=== PATIENT | female | born 1965 | race Caucasian/White ===

== ENCOUNTER 2020-06-27 12:07 | Observation (INO) | payer OTHER ==
[~2020-06-27] VITALS: Ht 165.1 cm; Wt 115.4 kg
--- NOTE | 2020-06-27 12:56 | NUR ---
SEE TRIAGE. PT PLACED ON ALL ROOM MONITORING. PT STATES STERNAL CP "HEAVINESS" FOR TWO DAYS, FAIRLY CONSTANT, WITH RADIATION TO BACK AND ACCOMPANYING SOB. ALSO TINGLING TO FINGERTIPS AND LIPS. PT DENIES N/V OR OTHER SX. PT REPORTS OF CAR TRIP TO [place] RECENTLY BUT NO OTHER TRAVEL. MEDIC STUDENT IN TO START IV, DRAW LABS. AT BS. CALL LIGHT WITHIN REACH.
[2020-06-27] MEDS ORDERED: ASPIRIN 81 MG TABLET CHEW ONE (13:30)
[2020-06-27] MEDS ORDERED: ASPIRIN 81 MG TABLET CHEW PO ONE (13:30)
[2020-06-27 13:32] LABS: BASOPHILS # (AUTO) 0.03 x10^3/uL (0-0.1); BASOPHILS % (AUTO) 0 % (0-1); EOSINOPHILS # (AUTO) 0.05 x10^3/uL (0-0.4); EOSINOPHILS % (AUTO) 1 % (1-7); LYMPHOCYTES # (AUTO) 2.04 x10^3/uL (1-3.4); LYMPHOCYTES % (AUTO) 24 % (22-44); MD NO; MEAN CORPUSCULAR HEMOGLOBIN 28.4 pg (27.0-34.8); MEAN CORPUSCULAR HGB CONC 33.2 g/dL (32.4-35.8); MEAN CORPUSCULAR VOLUME 85.5 fL (80-100); MEAN PLATELET VOLUME 8.2 fL (7.4-10.4); MONOCYTES % (AUTO) 5 % (2-9); NEUTROPHILS # (AUTO) 5.87 x10^3/uL (1.8-6.8); NEUTROPHILS % (AUTO) 70 % (42-75); PLATELET COUNT 284 x10^3/uL (130-400); RED BLOOD COUNT 5.32 x10^6/uL (3.82-5.3); RED CELL DISTRIBUTION WIDTH 14.1 % (9.6-15.2)
--- NOTE | 2020-06-27 13:36 | NUR ---
PT MEDICATED PER ERP ORDER. CALL LIGHT WITHIN REACH.
[2020-06-27 13:45] LABS: ALBUMIN 3.6 g/dL (3.4-5.0); ANION GAP 8 mmol/L (5-15); CALCIUM 9.1 mg/dL (8.5-10.1); CHLORIDE 110 mmol/L (98-107)
[2020-06-27 13:50] LABS: CREATININE 0.77 mg/dL (0.55-1.02); TROPONIN I < 0.015 ng/mL (0.000-0.045)
--- NOTE | 2020-06-27 13:55 | NUR ---
ALL RESULTS BACK, PT FOR RECHECK.
[2020-06-27] MEDS ORDERED: DOCUSATE 100 MG CAPSULE PO PRN (15:30)
[2020-06-27] MEDS ORDERED: MELATONIN 5 MG TABLET PO PRN (15:30)
[2020-06-27] MEDS ORDERED: LABETALOL 5MG/ML, 20ML IVPush PRN (15:30)
[2020-06-27] MEDS ORDERED: ENOXAPARIN 40 MG/0.4 ML SQ SCH (15:30)
[2020-06-27] MEDS ORDERED: ACETAMINOPHEN 325 MG TABLET PO PRN (15:30)
[2020-06-27] MEDS ORDERED: hydrALAzine 20 MG/ML, 1ML IVPush PRN (15:30)
[2020-06-27] MEDS ORDERED: ONDANSETRON 2MG/ML, 2ML IVPush PRN (15:30)
[2020-06-27 15:57] VITALS: BP 132/73
[2020-06-27] MEDS ORDERED: METOPROLOL TARTRATE 25 MG TAB PO SCH (18:00)
[2020-06-27 18:54] LABS: TROPONIN I < 0.015 ng/mL (0.000-0.045)
[2020-06-27] MEDS: SODIUM CHLORIDE FLUSH 10ML SYR IVF SCH (19:44)
[2020-06-27] MEDS ORDERED: OMNIPAQUE 350 MG/ML, 100ML BOTTLE ONE (19:50)
[2020-06-27 20:14] VITALS: BP 118/69
[2020-06-27] MEDS ORDERED: ATORVASTATIN 40 MG TABLET PO SCH (21:00)
[2020-06-28 01:20] LABS: ALANINE AMINOTRANSFERASE 38 U/L (12-78); ALBUMIN 3.3 g/dL (3.4-5.0); ANION GAP 7 mmol/L (5-15); CALCIUM 8.3 mg/dL (8.5-10.1); CHLORIDE 110 mmol/L (98-107); CREATININE 0.76 mg/dL (0.55-1.02)
[2020-06-28 01:22] LABS: ALKALINE PHOSPHATASE 68 U/L (45-117); BILIRUBIN,TOTAL 0.6 mg/dL (0.2-1.0); CHOL/HDL RATIO 3.5; CHOLESTEROL, TOTAL 193 mg/dL (140-239); HDL CHOL % 28 % (28-40); HDL CHOLESTEROL (DIRECT) 55 mg/dL (40-60); LDL CHOLESTEROL,CALCULATED 104 mg/dL (54-169); LDL/HDL RATIO 1.9 (0.5-3.0); TOTAL PROTEIN 7.2 g/dL (6.4-8.2); TRIGLYCERIDES 169 mg/dL (50-200); VLDL CHOLESTEROL 34 mg/dL (0-25)
[2020-06-28 01:26] LABS: TROPONIN I < 0.015 ng/mL (0.000-0.045)
[2020-06-28 02:19] VITALS: BP 110/76
[2020-06-28 07:33] VITALS: BP 123/85
[2020-06-28] MEDS: SODIUM CHLORIDE FLUSH 10ML SYR IVF SCH (08:09)
[2020-06-28] MEDS ORDERED: ASPIRIN 81 MG TABLET CHEW PO SCH (09:00)
[2020-06-28] MEDS ORDERED: REGADENOSON 0.4 MG/5 ML SYRINGE ONE (09:59)
[2020-06-28 12:28] VITALS: BP 105/73
[2020-06-28] MEDS ORDERED: DICL100G19 TP (15:05)
== END 2020-06-28 16:30 | disposition home or self-care (01) ==
LOC: ED 13:54 → SUATTDRO 14:46 → 5SO 14:50 → INTOOBSV 14:50
PROVIDERS: ADMIT Family Medicine; ATTEND Hospitalist
DX: R07.89 Other chest pain (principal); R00.0 Tachycardia, unspecified; I11.0 Hypertensive heart disease with heart failure; I50.30 Unspecified diastolic (congestive) heart failure; R94.31 Abnormal electrocardiogram [ECG] [EKG]; Z79.899 Other long term (current) drug therapy
CPT/HCPCS: 36415; 71045; 71275; 78452; 80048; 80053; 80061; 82040; 84484; 85025; 93005; 93017; 93306; 96372; 99285; A9502; C9898; G0378; J1650; J2785; Q9967